=== PATIENT | male | born 1990 | race Caucasian/White ===

== ENCOUNTER 2017-06-27 09:13 | Emergency (ER) | payer OTHER, BC ==
[~2017-06-27] VITALS: Ht 177.8 cm; Wt 104.3 kg
[2017-06-27] MEDS ORDERED: ZOLOFT50 MG PO (10:11)
[2017-06-27] MEDS ORDERED: XANAX 0.5 MG0.5 MG PO (10:12)
[2017-06-27 10:13] VITALS: BP 116/76
== END 2017-06-27 10:14 | disposition home or self-care (01) ==
LOC: ER 09:13
DX: S06.0X0A Concussion without loss of consciousness, initial encounter (principal); W50.0XXA Accidental hit or strike by another person, initial encounter; Y93.89 Activity, other specified; Y92.89 Other specified places as the place of occurrence of the external cause; Y99.8 Other external cause status